=== PATIENT | male | born 1990 | race Caucasian/White ===

== ENCOUNTER → 2020-11-29 | Outpatient (CLI) | payer BC | LOC: M.ULTRA 07:15 | PROVIDERS: ATTEND Specialist | DX: R10.31 Right lower quadrant pain (principal); Z98.890 Other specified postprocedural states ==

== ENCOUNTER → 2021-01-02 | Outpatient (CLI) | payer BC | LOC: M.CT 08:47 | PROVIDERS: ATTEND Specialist | DX: K40.90 Unilateral inguinal hernia, without obstruction or gangrene, not specified as recurrent (principal); R10.31 Right lower quadrant pain; Z98.890 Other specified postprocedural states ==

== ENCOUNTER → 2021-02-04 | Outpatient (CLI) | payer BC ==
--- NOTE | 2021-02-04 13:16 | 2DMMODE ---
[place] [address] 2 D/M-MODE ECHOCARDIOGRAM Name: MILAGRO ROSS Room: [facility]#: [id number] Admission: 02/04/21 Attend Phys: Rico Gonzalez MD Discharge: Date of : 89 Date of Service: 02/04/21 1316 Report #: [id number] THIS REPORT FOR: cc: Debra Cline. Debra Zarate. Marshal Hughes MD [facility] ~ APPROVED REPORT Study performed: 02/04/2021 07:43:00 EXAM: Comprehensive 2D, Doppler, and color-flow Echocardiogram Patient Location: Out-Patient BSA: 2.34 HR: 62 bpm Other Information Study Quality: Good Indications Palpitations Chest Pain 2D Dimensions IVSd: 10.83 (7-11mm) LVOT Diam: 20.98 (18-24mm) LVDd: 51.46 mm PWd: 11.06 (7-11mm) Ascending Ao: 30.76 (22-36mm) LVDs: 33.28 (25-40mm) Aortic Root: 32.45 mm Volumes Left Atrial Volume (Systole) LA ESV Index: 20.50 mL/m2 Aortic Valve AoV Peak Luke.: 1.25 m/s AO Peak Gr.: 6.22 mmHg LVOT Max P.79 mmHg AO Mean Gr.: 3.22 mmHg LVOT Mean P.65 mmHg LVOT Max V: 0.97 m/s AO V2 VTI: 27.13 cm LVOT Mean V: 0.57 m/s NATE (VTI): 2.90 cm2 LVOT V1 VTI: 22.78 [place] [address] 2 D/M-MODE ECHOCARDIOGRAM Name: MILAGRO ROSS Room: [facility]#: [id number] Admission: 02/04/21 Attend Phys: Rico Gonzalez MD Discharge: Date of : 89 Date of Service: 02/04/21 1316 Report #: [id number] E/A Ratio: 2.20 MV Decel. Time: 188.55 ms MV E Max Luke.: 0.76 m/s MV PHT: 54.68 ms MVA (PHT): 4.02 cm2 TDI E/Lateral E': 4.47 E/Medial E': 5.85 Medial E' Luke.: 0.13 m/s Lateral E' Luke.: 0.17 m/s Pulmonary Valve PV Peak Luke.: 0.95 m/s PV Peak Gr.: 3.64 mmHg Left Ventricle The left ventricle is normal size. There is normal LV segmental wall motion. There is normal left ventricular wall thickness. Left ventricular systolic function is normal. The left ventricular ejection fraction is within the normal range. LVEF is 50-55%. The left ventricular diastolic function is normal. Right Ventricle The right ventricle is normal size. The right ventricular systolic function is normal. Atria The left atrium size is normal. The right atrium size is normal. Aortic Valve The aortic valve is normal in structure. No aortic regurgitation is present. There is no aortic valvular stenosis. Mitral Valve The mitral valve is normal in structure. Trace to mild mitral regurgitation. No evidence of mitral valve stenosis. Tricuspid Valve The tricuspid valve is normal in structure. There is no tricuspid valve regurgitation noted. Pulmonic Valve The pulmonary valve is normal in structure. Mild pulmonic regurgitation. [place] [address] 2 D/M-MODE ECHOCARDIOGRAM Name: MILAGRO ROSS Room: [facility]#: [id number] Admission: 02/04/21 Attend Phys: Rico Gonzalez MD Discharge: Date of : 89 Date of Service: 02/04/21 1316 Report #: [id number] The aortic root is normal in size. IVC is normal in size and collapses >50% with inspiration. Pericardium There is no pericardial effusion. <Conclusion> The left ventricle is normal size. Left ventricular systolic function is normal. The left ventricular ejection fraction is within the normal range. LVEF is 50-55%. The left ventricular diastolic function is normal. The right ventricle is normal size. The left atrium size is normal. The aortic valve is normal in structure. The mitral valve is normal in structure. Trace to mild mitral regurgitation. The tricuspid valve is normal in structure. IVC is normal in size and collapses >50% with inspiration. There is no pericardial effusion. There is normal LV segmental wall motion. <ELECTRONICALLY SIGNED> By: Marshal Madison MD, [facility] 02/04/21 1316 15 15 Marshal Madison MD, FAC /INF
== END ==
LOC: M.CRD 07:49
PROVIDERS: ATTEND Internal Medicine Cardiovascular Disease
DX: I08.8 Other rheumatic multiple valve diseases (principal); R00.2 Palpitations